=== PATIENT | male | born 1950 | race Caucasian/White ===

== ENCOUNTER 2021-10-20 08:45 | Emergency (ER) | payer OTHER ==
[~2021-10-20] VITALS: Ht 185.4 cm; Wt 81.6 kg
[2021-10-20] MEDS ORDERED: COZAAR100 MG PO (09:00)
[2021-10-20] MEDS ORDERED: TAMS0.4C PO (09:00)
[2021-10-20] MEDS ORDERED: OMEPRAZOLE MAGN20 MG PO (09:01)
[2021-10-20] MEDS ORDERED: HYDROCHLORIC AC25 ML MC (09:02)
== END 2021-10-20 11:58 | disposition home or self-care (01) ==
LOC: ER 08:45
DX: B34.9 Viral infection, unspecified (principal); Z20.822 Contact with and (suspected) exposure to COVID-19

== ENCOUNTER 2021-11-16 09:28 | Emergency (ER) | payer OTHER ==
[~2021-11-16] VITALS: Ht 185.4 cm; Wt 86.2 kg
[~2021-11-16 09:28] MED LIST: COZAAR100 MG PO; HYDROCHLORIC AC25 ML MC; OMEPRAZOLE MAGN20 MG PO; TAMS0.4C PO
[2021-11-16] MEDS ORDERED: VITAMIN D3250 MCG PO (09:38)
== END 2021-11-16 15:48 | disposition home or self-care (01) ==
LOC: ER 09:28
DX: R10.84 Generalized abdominal pain (principal); Z03.818 Encounter for observation for suspected exposure to other biological agents ruled out

== ENCOUNTER 2023-05-15 09:42 | Emergency (ER) | payer OTHER ==
[~2023-05-15] VITALS: Ht 185.4 cm; Wt 83.9 kg
[~2023-05-15 09:42] MED LIST changes: +VITAMIN D3250 MCG PO
== END 2023-05-15 11:55 | disposition home or self-care (01) ==
LOC: ER 09:42
DX: J06.9 Acute upper respiratory infection, unspecified (principal); I10 Essential (primary) hypertension; E78.00 Pure hypercholesterolemia, unspecified